=== PATIENT | female | born 1970 | race Caucasian/White ===

== ENCOUNTER 2016-05-21 21:19 | Emergency (ER) | payer OTHER ==
[~2016-05-21] VITALS: Ht 149.9 cm; Wt 107.2 kg
[~2016-05-21 21:19] MED LIST: ACETAMINOPHEN500 MG PO; ACIDOPHILUS LA1 EACH PO; BENTYL20 MG PO; BUTALB-APAP-CA1 EACH PO; CEFTIN500 MG PO; DILAUDID2 MG PO; FLAGYL500 MG PO; FLONASE16 G1 BOTH NARES; FLORASTOR250 MG PO; HYDROCODON-ACE1 EAC7 PO; IMODIUM MS REL1 EACH PO; KEFLEX500 MG PO; LEVAQUIN500 MG PO; LEVAQUIN750 MG PO; LEVOFLOXACIN750 MG PO; LOPERAMIDE2 MG PO; MOBIC15 MG PO; MOTRIN800 MG PO; NOHOMEMEDS; PEPCID20 MG PO; PHENERGAN-CODE120 ML PO; PROVENTIL HFA6.7 GM IH; TAMIFLU75 MG PO; TESSALON PERLE100 MG PO; TYLENOL EXTRA500 MG PO; TYLENOL WITH C1 EACH PO; VENTOLIN HFA18 GM IH; ZANTAC150 MG PO; ZOFRAN ODT8 MG PO; ZOFRAN4 MG PO; ZOFRAN8 MG PO
[2016-05-22] MEDS ORDERED: ZOFRAN ODT4 MG PO (00:03)
[2016-05-22 00:14] VITALS: BP 134/86
== END 2016-05-22 00:19 | disposition home or self-care (01) ==
LOC: EME 21:19
DX: R11.2 Nausea with vomiting, unspecified (principal); R10.9 Unspecified abdominal pain; R19.7 Diarrhea, unspecified; Z87.01 Personal history of pneumonia (recurrent)
CPT/HCPCS: 71020; 99281; 99284

== ENCOUNTER 2017-11-26 22:32 | Emergency (ER) | payer OTHER ==
[~2017-11-26] VITALS: Ht 149.9 cm; Wt 111.9 kg
[~2017-11-26 22:32] MED LIST changes: +ZOFRAN ODT4 MG PO
[2017-11-26 23:00] LABS: HEMATOCRIT 31.7 % (36.0-46.0); HEMOGLOBIN 10.6 G/DL (11.9-15.5); MCH 27.5 PG (29.0-34.0); MCHC 33.4 G/DL (30.0-36.0); MCV 82.1 FL (83-99); PLATELET COUNT 295 K/uL (156-360); RBC DIS.WIDTH-CV 14.1 % (11.8-14.6); RBC DIS.WIDTH-SD 41.3 % (39-53); RED BLOOD COUNT 3.86 M/uL (3.80-5.20); WHITE BLOOD COUNT 11.4 K/uL (4.1-10.2)
[2017-11-26 23:11] LABS: CHLORIDE 105 mEq/L (99-109); POTASSIUM 3.6 mEq/L (3.7-5.4); SODIUM 139 mEq/L (136-147)
[2017-11-26 23:13] LABS: GLUCOSE 109 mg/dL (70-99)
[2017-11-26 23:17] LABS: CREATININE 0.9 mg/dL (0.6-1.3); GFR ESTIMATE (CALCULATED) > 59 mL/min/
[2017-11-26 23:18] LABS: UREA NITROGEN (BUN) 10 mg/dL (9-23)
[2017-11-27] MEDS ORDERED: MEDROL DOSEPAK4 MG PO (01:58)
[2017-11-27] MEDS ORDERED: ZITHROMAX Z-PA250 MG PO (01:58)
[2017-11-27] MEDS ORDERED: VENTOLIN HFA18 GM IH (01:58)
[2017-11-27 02:10] VITALS: BP 161/64
== END 2017-11-27 02:11 | disposition home or self-care (01) ==
LOC: EME 22:32
DX: J20.9 Acute bronchitis, unspecified (principal); Z87.01 Personal history of pneumonia (recurrent); Z90.49 Acquired absence of other specified parts of digestive tract
CPT/HCPCS: 71046; 80048; 85027; 94640